=== PATIENT | female | born 1970 | race Caucasian/White ===

== ENCOUNTER 2016-07-17 15:32 | Emergency (ER) | payer OTHER ==
[~2016-07-17] VITALS: Ht 167.6 cm; Wt 81.6 kg
[2016-07-17 15:35] VITALS: BP 123/69
[2016-07-17] MEDS ORDERED: IBUPROFEN 600 MG TAB PO ONE (15:55)
--- NOTE | 2016-07-17 15:58 | NUR ---
PT BIB PARENTS C/O RT LOWER ABDOMINAL PAIN X LAST NIGHT; PT HAD SAME PAIN X 1 MONTH AGO. PAIN SCALE OF 7/10 THAT RADIATES AT THE BACK.DENIES F/N/V/D.PT AAOX4;NO ACUTE DISTRESS NOTED AT THIS TIME;HOB ELEVATED;NEEDS ATTENDED;SAFETY PRECAUTION INSTITUTED;PSYCHOLOGICAL OPERATIONS AT BEDSIDE
--- NOTE | 2016-07-17 16:13 | NUR ---
PT WENT TO XRAY ACCOMPANIED BY PRACTICING MD ANESTHESIOLOGIST
--- NOTE | 2016-07-17 16:20 | NUR ---
BACK FROM XRAY;NO ACUTE DISTRESS NOTED AT THIS TIME;WILL CONTINUE TO MONITOR PT.
--- NOTE | 2016-07-17 16:36 | NUR ---
SCREENING SPECIALIST AT BEDSIDE
--- NOTE | 2016-07-17 17:00 | NUR ---
Patient discharged with v/s stable. Written and verbal after care instructions given and explained.Patient alert, oriented and verbalized understanding of instructions. Ambulatory with steady gait. All questions addressed prior to discharge. ID band removed. Patient advised to follow up with PMD. Rx of IBUPROFEN,NITROFURANTOIN AND PHENAZOPYRIDINE given. Patient educated on indication of medication including possible reaction and side effects. Opportunity to ask questions provided and answered.ADVISED PT TO INCREASE FLUID INTAKE AND PT AGREED TO IT.
[2016-07-17 17:01] VITALS: BP 129/76
== END 2016-07-17 17:00 | disposition home or self-care (01) ==
LOC: MED 15:32
DX: M79.602 Pain in left arm (principal); N39.0 Urinary tract infection, site not specified; I10 Essential (primary) hypertension

== ENCOUNTER 2020-08-13 19:30 | Emergency (ER) | payer OTHER, MEDICAID ==
[~2020-08-13] VITALS: Ht 167.6 cm; Wt 81.2 kg
[~2020-08-13 19:30] MED LIST: CYCL10TA13 PO; FURO-570 PO; HYDR2TAB6 PO; MILN50TA PO; NITR100C7 PO; POTA10TE30 PO
[2020-08-13 19:41] VITALS: BP 103/77
--- NOTE | 2020-08-13 19:41 | NUR ---
TO BED AMBULATORY
--- NOTE | 2020-08-13 19:48 | NUR ---
ERMD EVALUATING PATIENT AT BEDSIDE.
--- NOTE | 2020-08-13 19:52 | NUR ---
PATIENT 50 Y/O BIB SELF FOR C/O "ACHEY SENSATION" IN RIGHT ARM THAT STARTED TODAY. A & OX4. PATIENT STATES "BRITTNY PREVIOUSLY BEEN TOLD THAT I MIGHT HAVE FIBROMYALGIA" AND "BRITTNY BEEN SO TIRED LATELY." PATIENT DENIES PAIN AT THIS TIME. SPEECH IS CLEAR. CAP REFILL <3 SEC. CMS INTACT. BILATERAL RADIAL PULSE STRONG AND EQUAL. NO NOTED FACIAL DROOPING. PATIENT REPORTS SHE HAS BEEN USING HER ARMS/HANDS A LOT BY HELPING FRIENDS WITH DETAIL WORK. SKIN IS WARM, DRY AND INTACT. PATIENT DENIES CP, SOB, FEVER, CHILLS. SEE COMPLETE ASSESSMENT FOR FURTHER DETAILS. SEE ALLERGIES LISTED.
[2020-08-13] MEDS ORDERED: diazePAM 5 MG TAB PO ONE (20:00)
[2020-08-13] MEDS: KETOROLAC 30 MG/ML VIAL IM ONE ×2 (20:26→20:51)
--- NOTE | 2020-08-13 20:27 | NUR ---
PATIENT REFUSED MEDICATIONS, STATING "I AM SCARED THEY WILL INTERACT WITH MY OTHER MEDICATIONS AND I WAS TOLD NOT TO TAKE THEM." ERMD MADE AWARE, NO NEW ORDERS AT THIS TIME.
--- NOTE | 2020-08-13 20:36 | NUR ---
Provided Pt with shoulder sling for Pt's right arm, placed Pt in sling and adjusted to a position of comfort without incident.
--- NOTE | 2020-08-13 20:41 | NUR ---
ERMD ASSESS PATIENT AT BEDSIDE AND EXPLAINED USE OF MEDICATIONS. PATIENT ROM INTACT, RIGHT ARM STRENGTH GOOD, PATIENT IS ABLE TO MOVE RIGHT ARM WITHOUT DIFFICULTY. PATIENT AGREED TO TAKE TORADAL MEDICATION FOR PAIN AT THIS TIME.
--- NOTE | 2020-08-13 21:05 | NUR ---
LAB AT BEDSIDE.
--- NOTE | 2020-08-13 21:18 | NUR ---
REASSESS PATIENT, STATING "I FEEL A LOT BETTER", WHILE MOVING HER RIGHT ARM UP AND DOWN, EXTENDED AND FLEXING HER WRIST WITHOUT DIFFICULTY. PATIENT DENIES PAIN OR DISCOMFORT AT THIS TIME. ERMD MADE AWARE WITH NO NEW ORDERS AT THIS TIME.
[2020-08-13 21:24] LABS: ANION GAP 11.6 (8-16); CREATININE 0.9 mg/dL (0.6-1.3); POTASSIUM 3.6 mmol/L (3.5-5.1)
[2020-08-13 21:39] VITALS: BP 108/78
--- NOTE | 2020-08-13 21:39 | NUR ---
Patient discharged with v/s stable. Written and verbal after care instructions given and explained. Patient verbalized understanding. Ambulatory with steady gait. All questions addressed prior to discharge. Advised to follow up with PMD.
== END 2020-08-13 21:39 | disposition home or self-care (01) ==
LOC: MED 19:30
DX: G81.11 Spastic hemiplegia affecting right dominant side (principal); I11.9 Hypertensive heart disease without heart failure; J45.909 Unspecified asthma, uncomplicated; Z88.0 Allergy status to penicillin; Z91.040 Latex allergy status; Z88.5 Allergy status to narcotic agent; Z79.899 Other long term (current) drug therapy
CPT/HCPCS: 36415; 80048; 96372; 99283; J1885

== ENCOUNTER 2023-01-17 22:08 | Inpatient (IN) | payer OTHER, MEDICAID ==
[~2023-01-17] VITALS: Ht 167.6 cm; Wt 80.7 kg
[~2023-01-17 22:08] MED LIST changes: +CYCL-655 PO; -CYCL10TA13 PO; +POTA10TA70 PO; -POTA10TE30 PO
[2023-01-17 22:15] VITALS: BP 114/62; PULSE 95; RESP 17; TEMP 98; O2SAT 98
[2023-01-17] MEDS ORDERED: KETOROLAC 15 MG/ML VIAL IVP ONE (23:25)
[2023-01-17] MEDS ORDERED: NACL 0.9% 1,000 ML IV ONE (23:25)
[2023-01-17] MEDS ORDERED: ACETAMINOPHEN EXTRA STRENGTH 500 MG TAB PO ONE (23:25)
[2023-01-17] MEDS ORDERED: METOCLOPRAMIDE 10 MG/2 ML INJ VIAL IVP ONE (23:25)
[2023-01-17 23:42] LABS: BASOPHILS # (AUTO) 0.1 K/uL (0.00-0.22); BASOPHILS % (AUTO) 0.9 % (0.0-2.0); EOSINOPHILS # (AUTO) 0.3 K/uL (0-0.4); EOSINOPHILS % (AUTO) 2.8 % (0.0-4.0); HEMOGLOBIN 11.2 g/dL (12.0-16.0); LYMPHOCYTES # (AUTO) 2.8 K/uL (2.5-16.5); LYMPHOCYTES % (AUTO) 30.3 % (20.5-51.1); MEAN CORPUSCULAR HEMOGLOBIN 32 pg (27-31); MEAN CORPUSCULAR HGB CONC 34 g/dL (33-37); MONOCYTES # (AUTO) 0.8 K/uL (0.8-1.0); MONOCYTES % (AUTO) 8.8 % (1.7-9.3); NEUTROPHILS # (AUTO) 5.3 K/uL (1.8-7.7); NEUTROPHILS % (AUTO) 57.2 % (42.2-75.2); PLATELET COUNT (AUTO) 276 K/uL (140-450); RED BLOOD CELL COUNT(AUTO) 3.55 MIL/uL (4.20-5.40); RED CELL DISTRIBUTION WIDTH 12.9 % (11.6-13.7); WHITE BLOOD COUNT (AUTO) 9.2 K/uL (4.8-10.8)
[2023-01-17 23:53] LABS: CREATININE 1.4 mg/dL (0.6-1.3)
[2023-01-18 00:42] LABS: APPEARANCE,URINE CLEAR (CLEAR); BILIRUBIN,URINE NEGATIVE (NEGATIVE); BLOOD, URINE NEGATIVE (NEGATIVE); COLOR,URINE YELLOW (YELLOW); LEUKOCYTE ESTERASE ,URINE 1+ (NEGATIVE); NITRITE, URINE NEGATIVE (NEGATIVE); PROTEIN,URINE NEGATIVE (NEGATIVE); UGLUCOSE NEGATIVE (NEGATIVE); UROBILINOGEN,URINE 0.2 EU/dL (0.2 - 1)
[2023-01-18 00:52] LABS: BACTERIA,URINE 10-30 (MOD) /HPF (None Seen); MUCUS,URINE 1+ /LPF (None Seen); RBC,URINE 0-5 /HPF (0-5); SQUAMOUS EPITHELIAL CELL,UR 4-10 (MOD) /LPF (0-3 (FEW))
[2023-01-18] MEDS ORDERED: ALBUTEROL 0.083% 2.5 MG/3 ML NEBU INH ONE (03:25)
[2023-01-18] MEDS ORDERED: IPRATROPIUM 0.02% 0.5 MG/2.5 ML NEBU INH ONE (03:25)
[2023-01-18 03:33] VITALS: PULSE 83; RESP 16; O2SAT 94
[2023-01-18 05:35] VITALS: TEMP 98
[2023-01-18 08:30] VITALS: BP 122/64; PULSE 86; RESP 18; O2SAT 94
[2023-01-18] MEDS ORDERED: GABAPENTIN (11:27)
[2023-01-18] MEDS ORDERED: LISI10TA30 PO (11:27)
[2023-01-18] MEDS ORDERED: METO-744 PO (11:27)
[2023-01-18] MEDS ORDERED: FURO20TA8 PO (11:27)
[2023-01-18] MEDS ORDERED: FLUT0.0547 NS (11:27)
[2023-01-18] MEDS ORDERED: CYCLOBENZAPRINE 10 MG TAB PO PRN (12:15)
[2023-01-18] MEDS ORDERED: NACL 0.9% 1,000 ML IV SCH (12:15)
[2023-01-18] MEDS ORDERED: POTASSIUM CHLORIDE 10 MEQ TABER PO PRN (12:15)
[2023-01-18] MEDS ORDERED: ONDANSETRON 4 MG/2 ML VIAL IVP PRN (12:15)
[2023-01-18] MEDS ORDERED: ACETAMINOPHEN 325 MG TAB PO PRN (12:15)
[2023-01-18] MEDS ORDERED: MAG SULF 2000 MG/WATER PREMIX 50 ML IV PRN (12:15)
[2023-01-18 13:08] LABS: BASOPHILS % (AUTO) 0.7 % (0.0-2.0); EOSINOPHILS # (AUTO) 0.2 K/uL (0-0.4); EOSINOPHILS % (AUTO) 2.4 % (0.0-4.0); HEMATOCRIT 31.1 % (36-48); HEMOGLOBIN 10.7 g/dL (12.0-16.0); LYMPHOCYTES # (AUTO) 1.7 K/uL (2.5-16.5); LYMPHOCYTES % (AUTO) 25.8 % (20.5-51.1); MEAN CORPUSCULAR HEMOGLOBIN 32 pg (27-31); MEAN CORPUSCULAR HGB CONC 35 g/dL (33-37); MEAN CORPUSCULAR VOLUME 92.5 fL (80-94); MONOCYTES # (AUTO) 0.5 K/uL (0.8-1.0); MONOCYTES % (AUTO) 8.4 % (1.7-9.3); NEUTROPHILS # (AUTO) 4.1 K/uL (1.8-7.7); NEUTROPHILS % (AUTO) 62.7 % (42.2-75.2); PLATELET COUNT (AUTO) 230 K/uL (140-450); RED BLOOD CELL COUNT(AUTO) 3.36 MIL/uL (4.20-5.40); RED CELL DISTRIBUTION WIDTH 13.1 % (11.6-13.7); WHITE BLOOD COUNT (AUTO) 6.5 K/uL (4.8-10.8)
[2023-01-18 13:25] LABS: ANION GAP 11.6 (8-16); CALCIUM 7.9 mg/dL (8.5-10.1); CARBON DIOXIDE 26.9 mmol/L (21-32); CREATININE 1.3 mg/dL (0.6-1.3); POTASSIUM 4.5 mmol/L (3.5-5.1)
[2023-01-18 13:40] LABS: CHOL/HDL RATIO 4.1 (1-4.5); FREE T4 (FREE THYROXINE) 0.98 ng/dL (0.76-1.46); MAGNESIUM 2.4 mg/dL (1.8-2.4); THYROID STIMULATING HORMONE 1.42 uIU/mL (0.34-3.74)
[2023-01-18 13:55] LABS: INR 0.99 (0.8-1.2); PARTIAL THROMBOPLASTIN TIME 27.9 secs (22-35.6); PROTHROMBIN TIME 10.4 secs (10.8-13.4)
[2023-01-18] MEDS ORDERED: DOCUSATE SODIUM 100 MG GELCAP PO SCH (21:00)
[2023-01-19] MEDS ORDERED: lisinopriL 10 MG TAB PO SCH (09:00)
[2023-01-19] MEDS ORDERED: FUROSEMIDE 40 MG TAB PO SCH (09:00)
[2023-01-19] MEDS ORDERED: FLUTICASONE NASAL 50 MCG/ACTUATION 16 GM BTL NS SCH (09:00)
[2023-01-19] MEDS ORDERED: NON-FORMULARY ITEM (Metoprolol Succinate (Metoprolol Succinate Er) 1 TAB) PO SCH (09:00)
[2023-01-19] MEDS ORDERED: METOPROLOL SUCCINATE 50 MG TABER PO SCH (09:00)
[2023-01-19] MEDS ORDERED: PANTOPRAZOLE 40 MG INJ VIAL IVP SCH (09:00)
== END 2023-01-18 16:51 | disposition left against medical advice (07) | DRG 391 ==
LOC: MED 22:08 → MTU 01-18 10:05
DX: K21.9 Gastro-esophageal reflux disease without esophagitis (principal); N17.0 Acute kidney failure with tubular necrosis; I24.9 Acute ischemic heart disease, unspecified; J45.909 Unspecified asthma, uncomplicated; R13.10 Dysphagia, unspecified; M79.7 Fibromyalgia; I35.0 Nonrheumatic aortic (valve) stenosis; M47.816 Spondylosis without myelopathy or radiculopathy, lumbar region; Z53.29 Procedure and treatment not carried out because of patient's decision for other reasons; I11.0 Hypertensive heart disease with heart failure; I50.9 Heart failure, unspecified; Z86.718 Personal history of other venous thrombosis and embolism; Z88.5 Allergy status to narcotic agent; Z88.0 Allergy status to penicillin; Z88.8 Allergy status to other drugs, medicaments and biological substances; Z79.899 Other long term (current) drug therapy; Z86.711 Personal history of pulmonary embolism; Z79.01 Long term (current) use of anticoagulants
CPT/HCPCS: 36415; 71045; 71275; 76770; 80048; 81001; 82140; 82150; 83036; 83605; 83690; 83735; 83880; 84100; 84439; 84443; 84484; 85025; 85379; 85610; 85730; 87086; 93005; 93970; 96374; 99285; J1885; J2765; J7613; J7644; Q0092; Q9967